=== PATIENT | male | born 1990 | race African-American/Black ===

== ENCOUNTER 2022-10-06 10:12 | Emergency (ER) | payer MEDICAID, OTHER ==
[~2022-10-06] VITALS: Ht 185.4 cm; Wt 86.3 kg
[2022-10-06 11:49] VITALS: BP 121/64
[2022-10-06] MEDS ORDERED: BACL10TA PO (12:24)
[2022-10-06] MEDS ORDERED: IBUP800T27 PO (12:24)
[2022-10-06] MEDS ORDERED: IBUPROFEN 800 MG TAB PO ONE (12:30)
== END 2022-10-06 12:39 | disposition home or self-care (01) ==
LOC: ER 10:12
DX: S39.012A Strain of muscle, fascia and tendon of lower back, initial encounter (principal); Z79.1 Long term (current) use of non-steroidal anti-inflammatories (NSAID); Z79.899 Other long term (current) drug therapy; X50.1XXA Overexertion from prolonged static or awkward postures, initial encounter; Y93.89 Activity, other specified; Y92.89 Other specified places as the place of occurrence of the external cause; Y99.0 Civilian activity done for income or pay
CPT/HCPCS: 71046

== ENCOUNTER 2022-10-13 06:24 | Emergency (ER) | payer MEDICAID ==
[~2022-10-13] VITALS: Ht 185.4 cm; Wt 86.0 kg
[~2022-10-13 06:24] MED LIST: BACL10TA PO; IBUP800T27 PO
[2022-10-13 07:56] VITALS: BP 110/70
== END 2022-10-13 08:18 | disposition home or self-care (01) ==
LOC: ER 06:24
DX: S29.012D Strain of muscle and tendon of back wall of thorax, subsequent encounter (principal); X58.XXXD Exposure to other specified factors, subsequent encounter